=== PATIENT | male | born 1950 | race Caucasian/White ===

== ENCOUNTER → 2018-06-19 | Outpatient (CLI) | payer MEDICARE | LOC: PLD 11:07 → LAB SHORT 11:07 | DX: C44.41 Basal cell carcinoma of skin of scalp and neck (principal) | CPT/HCPCS: 88305 ==

== ENCOUNTER → 2018-07-03 | Outpatient (CLI) | payer MEDICARE | END | disposition home or self-care (01) | LOC: LAB SHORT 13:41 → PLD 13:41 | DX: C44.41 Basal cell carcinoma of skin of scalp and neck (principal) | CPT/HCPCS: 88305 ==

== ENCOUNTER → 2018-12-17 | Outpatient (CLI) | payer MEDICARE | END | disposition home or self-care (01) | LOC: PLD 08:39 → LAB SHORT 08:39 | DX: D48.5 Neoplasm of uncertain behavior of skin (principal) | CPT/HCPCS: 88305 ==

== ENCOUNTER → 2020-07-15 | Outpatient (CLI) | payer MEDICARE | END | disposition home or self-care (01) | LOC: PLD 12:42 → LAB SHORT 12:42 | DX: L57.0 Actinic keratosis (principal); D04.4 Carcinoma in situ of skin of scalp and neck | CPT/HCPCS: 88305 ==

== ENCOUNTER → 2020-11-05 | Outpatient (CLI) | payer MEDICARE | END | disposition home or self-care (01) | LOC: LAB SHORT 12:22 → LAB 12:22 | DX: L73.9 Follicular disorder, unspecified (principal) | CPT/HCPCS: 87070; 87205 ==

== ENCOUNTER → 2021-02-16 | Outpatient (CLI) | payer MEDICARE | END | disposition home or self-care (01) | LOC: LAB 08:15 → LAB SHORT 08:15 | DX: D04.39 Carcinoma in situ of skin of other parts of face (principal); D04.22 Carcinoma in situ of skin of left ear and external auricular canal; D04.72 Carcinoma in situ of skin of left lower limb, including hip | CPT/HCPCS: 88305 ==

== ENCOUNTER → 2021-09-14 | Outpatient (CLI) | payer MEDICARE | END | disposition home or self-care (01) | LOC: LAB SHORT 08:14 | DX: C44.622 Squamous cell carcinoma of skin of right upper limb, including shoulder (principal); D04.39 Carcinoma in situ of skin of other parts of face | CPT/HCPCS: 88305 ==

== ENCOUNTER → 2021-10-12 | Outpatient (CLI) | payer MEDICARE | END | disposition home or self-care (01) | LOC: LAB SHORT 11:03 | DX: C44.622 Squamous cell carcinoma of skin of right upper limb, including shoulder (principal); D48.5 Neoplasm of uncertain behavior of skin | CPT/HCPCS: 88305 ==

== ENCOUNTER → 2022-03-14 | Outpatient (CLI) | payer MEDICARE | END | disposition home or self-care (01) | LOC: PLD 16:00 → LAB SHORT 16:00 | DX: D48.5 Neoplasm of uncertain behavior of skin (principal) | CPT/HCPCS: 88305 ==

== ENCOUNTER 2022-12-05 06:26 | Day surgery (SDC) | payer OTHER, MEDICARE ==
[~2022-12-05] VITALS: Ht 180.3 cm; Wt 79.5 kg
[~2022-12-05 06:26] MED LIST: ALLEGRA ALLERG180 MG PO; Amlodipine Bes2.5 MG PO; Aspir 8181 MG PO; CARV25 PO; DABI150C PO; Desmopressin A0.2 MG PO; MONT10T PO; NITR.4SL SL; PRAV20 PO; RAMI5 PO; SERT25 PO; TAMS.4ER PO; Vitamin D1000 UNI1 PO
[2022-12-05 07:26] LABS: BASOPHILS ABSOLUTE AUTO 0.06 K/mm3 (0.00-0.23); BASOPHILS PERCENT AUTO 1 % (0-2); EOSINOPHILS ABSOLUTE AUTO 0.22 K/mm3 (0.00-0.68); EOSINOPHILS PERCENT AUTO 4 % (0-6); Hematocrit 38.5 % (37.0-53.0); Hemoglobin 13.5 g/dL (13.5-17.5); IMMATURE GRAN ABSOLUTE AUTO 0.01 K/mm3 (0.00-0.10); IMMATURE GRAN PERCENT AUTO 0 % (0-1); LYMPHOCYTES ABSOLUTE AUTO 2.35 K/mm3 (0.84-5.20); LYMPHOCYTES PERCENT AUTO 40 % (21-46); MONOCYTES ABSOLUTE AUTO 0.56 K/mm3 (0.16-1.47); MONOCYTES PERCENT AUTO 9 % (4-13); Mean Corpuscular HGB 30.5 pg (26.0-34.0); Mean Corpuscular HGB Conc 35.1 g/dL (31.5-36.5); Mean Corpuscular Volume 87 fL (80-100); Mean Platelet Volume 10.1 fL (9.1-12.4); NEUTROPHILS ABSOLUTE AUTO 2.74 K/mm3 (1.96-9.15); NEUTROPHILS PERCENT AUTO 46 % (41-73); Platelet Count 222 K/mm3 (150-400); RDW Standard Deviation 41.9 fL (35.1-46.3); Red Blood Cell Count 4.42 M/mm3 (4.30-5.90); White Blood Cell Count 5.94 K/mm3 (4.00-11.30)
[2022-12-05 07:31] LABS: Calcium, Blood 8.9 mg/dL (8.5-10.1); Creatinine, Blood 0.67 mg/dL (0.60-1.20); International Normalized Ratio 1.12; Potassium, Blood 3.4 mmol/L (3.5-5.5); Prothrombin Time Results 11.7 Sec (9.7-11.5)
--- NOTE | 2022-12-05 09:50 | NUR ---
PT BACK TO RECOVERY ROOM VIA RECLINER AFTER PROCEDURE. AWAKE AND ALERT, DENIES PAIN OR DISCOMFORT. LEFT CHEST SITE WITH CLEAR TEGADERM IN PLACE. SITE IS CLEAN AND DRY, NO BLEEDING OR SWELLING.
--- NOTE | 2022-12-05 10:45 | NUR ---
IV DC'D, CATH INTACT. PT GIVEN DC INSTRUCTIONS, VERBALIZED UNDERSTANDING. PT OUT TO CAR VIA WHEELCHAIR, ACCOMPANIED BY SPOUSE. LEFT CHEST SITE REMAINS CLEAN AND DRY AT TIME OF DISCHARGE, NO BLEEDING OR SWELLING.
== END 2022-12-05 11:00 | disposition home or self-care (01) ==
LOC: MHTC 06:26
PROVIDERS: Internal Medicine Cardiovascular Disease
DX: Z45.010 Encounter for checking and testing of cardiac pacemaker pulse generator [battery] (principal); I48.91 Unspecified atrial fibrillation; I11.0 Hypertensive heart disease with heart failure; I50.42 Chronic combined systolic (congestive) and diastolic (congestive) heart failure; I25.118 Atherosclerotic heart disease of native coronary artery with other forms of angina pectoris; I25.2 Old myocardial infarction; G47.33 Obstructive sleep apnea (adult) (pediatric); Z79.899 Other long term (current) drug therapy; Z79.82 Long term (current) use of aspirin
CPT/HCPCS: 33229; 80048; 85025; 85610; 99152; 99153; C2621; J0690; J1580; J1644; J2250; J3010; J7030; J7040